=== PATIENT | female | born 1945 | race Caucasian/White ===

== ENCOUNTER 2022-08-30 15:06 | Outpatient (RCR) | payer MEDICARE | END 2022-09-15 | disposition home or self-care (01) | LOC: MKS.ESL.OT | DX: G40.909 Epilepsy, unspecified, not intractable, without status epilepticus (principal) ==

== ENCOUNTER 2024-03-19 13:06 | Emergency (ER) | payer MEDICARE ==
[~2024-03-19] VITALS: Ht 157.5 cm; Wt 72.7 kg
[2024-03-19 13:17] VITALS: TEMP 98
[2024-03-19 14:16] LABS: BASO # 0.1 K/mm3 (0.0-0.2); BASO % 0.6 % (0.0-2.0); EOS # 0.2 K/mm3 (0.0-0.7); EOS % 1.3 % (0.0-4.0); GRAN # 11.2 K/mm3 (1.4-6.5); GRAN % 75.4 % (42.2-75.2); HEMATOCRIT 41.5 % (37.0-47.0); HEMOGLOBIN 13.3 g/dl (12.5-16.0); LYMPH # 2.6 K/mm3 (1.2-3.4); LYMPH % 17.3 % (20.0-51.0); MEAN CELL VOLUME 96 fl (80.0-100.0); MEAN CORPUSCULAR HEMOGLOBIN 31 pg (27-31); MEAN CORPUSCULAR HGB CONC 32 g/dl (33.0-37.0); MEAN PLATELET VOLUME 9.7 fl (7.4-10.4); MONO # 0.7 K/mm3 (0.1-0.6); MONO % 4.9 % (1.7-9.3); PLATELET COUNT 510 K/mm3 (130-400); RED BLOOD COUNT 4.33 M/mm3 (4.10-5.30); REDCELL DISTRIBUTION WIDTH-CV 13.8 % (11.5-14.5)
[2024-03-19 14:35] LABS: ALBUMIN 3.8 g/dL (3.4-4.8); BILIRUBIN,TOTAL 0.3 mg/dL (0.2-1.2); CALCIUM 10.4 mg/dL (8.4-10.2); CREATININE, serum 1.12 mg/dL (0.57-1.11); MAGNESIUM 2.4 mg/dL (1.6-2.6); POTASSIUM 4.6 mEq/L (3.5-4.5); TOTAL PROTEIN 8.4 g/dl (6.2-8.1)
[2024-03-19 14:43] LABS: TROPONIN-I 0.021 ng/mL (0.00-0.033)
[2024-03-19 14:56] LABS: TSH w REFLEX 1.706 uIU/mL (0.350-4.940)
[2024-03-19 16:15] VITALS: BP 176/67; PULSE 49
== END 2024-03-19 16:28 | disposition home or self-care (01) ==
LOC: COL.ER 13:06
PROVIDERS: Emergency Medicine
DX: R00.1 Bradycardia, unspecified (principal); D72.829 Elevated white blood cell count, unspecified